=== PATIENT | female | born 1955 | race Caucasian/White ===

== ENCOUNTER → 2017-11-12 | Outpatient (CLI) | payer OTHER ==
[~2017-11-12] MED LIST: ESTR-41 PO; ESTR1VAG6 VG; HYDR-2963 PO; HYDR-2966 PO; OMEP-137 PO; RANI-366 PO
== END ==
LOC: LAB 10:15
PROVIDERS: ATTEND Obstetrics & Gynecology
DX: I10 Essential (primary) hypertension (principal)
CPT/HCPCS: 36415; 82310; 82374; 82435; 82565; 82947; 84132; 84295; 84520

== ENCOUNTER → 2017-12-03 | Outpatient (CLI) | payer OTHER | LOC: LAB 09:38 | PROVIDERS: ATTEND Obstetrics & Gynecology | DX: I10 Essential (primary) hypertension (principal) | CPT/HCPCS: 36415; 82310; 82374; 82435; 82565; 82947; 84132; 84295; 84520 ==

== ENCOUNTER → 2017-12-03 | Outpatient (CLI) | payer OTHER ==
--- NOTE | 2017-12-06 16:55 | RADIOLOGY IMAGING REPORT ---
FACILITY: [facility] PATIENT NAME: VIKKI RIDDLE : [id number] MR: [id number] V: [id number] EXAM DATE: ORDERING PHYSICIAN: ABEL STEWART TECHNOLOGIST: Brigette Chavez PROCEDURE:BILATERAL DIGITAL SCREENING MAMMOGRAM WITH CAD ASSISTED INTERPRETATION & 3D TOMOSYNTHESIS COMPARISON:Prior mammograms 11/26/16 back to 07/11/14. INDICATIONS:screening FINDINGS: The breast parenchyma consists of scattered fibroglandular tissue. There are no dominant masses or recent microcalcifications present. DIAGNOSTIC CATEGORY 1--NEGATIVE. RECOMMENDATIONS: ROUTINE MAMMOGRAM AND CLINICAL EVALUATION. IMPRESSION: BIRADS 1: Negative. Routine annual mammographic screening. Dictated by: Cresencio Hardy M.D. on 12/06/2017 at 10:47 Transcribed by: FELISHA on 12/06/2017 at 10:57 Approved by: Cresencio Hardy M.D. on 12/06/2017 at 16:55 [facility]
== END ==
LOC: MAMO 02:41
PROVIDERS: ATTEND Obstetrics & Gynecology
DX: Z12.31 Encounter for screening mammogram for malignant neoplasm of breast (principal)
CPT/HCPCS: 77063; 77067